=== PATIENT | female | born 1995 | race Asian ===

== ENCOUNTER 2022-02-11 17:32 | Emergency (ER) | payer OTHER ==
[~2022-02-11] VITALS: Ht 157.5 cm; Wt 73.9 kg
--- NOTE | 2022-02-11 18:13 | NUR ---
TO ER BED 16, CAME IN FOR EPIGASTRIC PAIN x 3DAYS, WORSE AFTER EATING WENT TO URGENT CARE AND SUGGESTED EMIL [id number], BREATHING EVEN AND NON LABORED, AWAITING MD [place]
[2022-02-11] MEDS ORDERED: FAMOTIDINE/PF INJ 20 MG/2 ML VIAL IV ONE ×2 (18:59→19:00)
[2022-02-11] MEDS ORDERED: MORPHINE SULFATE INJ 2 MG/ML DISP.SYRIN ONE (18:59)
[2022-02-11] MEDS ORDERED: MORPHINE SULFATE INJ 2 MG/ML DISP.SYRIN IV ONE (19:00)
[2022-02-11] MEDS ORDERED: IV NS 0.9% 1,000 ML BAG IV ONE (19:00)
--- NOTE | 2022-02-11 19:00 | NUR ---
[facility] PATCHER AT BEDSIDE FOR BLOOD DRAW
[2022-02-11 19:43] LABS: CALCIUM, SERUM 9.3 mg/dL (8.5-10.1); CREATININE 0.7 mg/dL (0.6-1.3); POTASSIUM 3.7 mmol/L (3.5-5.1)
[2022-02-11 19:53] LABS: BILIRUBIN,URINE NEGATIVE (NEGATIVE); COLOR,URINE YELLOW (YELLOW); LEUKOCYTE ESTERASE ,URINE NEGATIVE (NEGATIVE); NITRITE, URINE NEGATIVE (NEGATIVE); PH,URINE 5.5 (5.0-8.0); PROTEIN,URINE NEGATIVE (NEGATIVE); UGLUCOSE NEGATIVE (NEGATIVE); UROBILINOGEN,URINE 0.2 EU/dL (0.2)
[2022-02-11 19:57] LABS: BACTERIA,URINE RARE /HPF (None Seen); MUCUS,URINE Moderate /LPF (None Seen); RBC,URINE 0-2 /HPF (0-2); WBC,URINE 0-2 /HPF (0-3)
[2022-02-11 19:58] LABS: BILIRUBIN,DIRECT 0.1 mg/dL (0.0-0.2); BILIRUBIN,TOTAL 0.3 mg/dL (0.2-1.0)
[2022-02-11 20:01] LABS: BASOPHILS # (AUTO) 0.1 K/uL (0.0-0.2); BASOPHILS % (AUTO) 0.6 % (0.0-2.0); EOSINOPHILS % (AUTO) 1.2 % (0.0-6.0); HEMATOCRIT 38 % (33-45); HEMOGLOBIN 12.3 g/dL (11.5-14.8); LYMPHOCYTES # (AUTO) 3.2 K/uL (0.8-4.8); LYMPHOCYTES % (AUTO) 34.2 % (20.0-44.0); MEAN CORPUSCULAR HGB CONC 33 g/dl (31.0-36.0); MEAN CORPUSCULAR VOLUME 80 fL (82-100); MONOCYTES # (AUTO) 0.5 K/uL (0.1-1.30); MONOCYTES % (AUTO) 4.9 % (2.0-12.0); NEUTROPHILS # (AUTO) 5.5 K/uL (1.8-8.9); NEUTROPHILS % (AUTO) 59.1 % (43.0-81.0); PLATELET COUNT (AUTO) 304 K/uL (150-450); RED BLOOD CELL COUNT(AUTO) 4.68 MIL/uL (4.0-5.2); WHITE BLOOD COUNT (AUTO) 9.2 K/uL (4.3-11.0)
--- NOTE | 2022-02-11 21:34 | NUR ---
DR AREVALO ON THE PHONE WITH DR SAHNI, GEN SURG
[2022-02-11] MEDS ORDERED: IBUP-1955 PO (21:37)
[2022-02-11] MEDS ORDERED: TRAM50TA2 PO (21:40)
--- NOTE | 2022-02-11 21:58 | NUR ---
Patient discharged to home in stable condition. Written and verbal after care instructions given. Patient verbalizes understanding of instruction.
[2022-02-11 21:59] VITALS: BP 133/80
--- NOTE | 2022-02-11 22:00 | NUR ---
IV removed. Catheter intact and site benign. Pressure and 4x4 applied to site. No bleeding noted.Patient discharged to home in stable condition. Written and verbal after care instructions given. Patient verbalizes understanding of instruction.
== END 2022-02-11 22:00 | disposition home or self-care (01) ==
LOC: ER 17:38
DX: R10.13 Epigastric pain (principal); R10.11 Right upper quadrant pain; I88.0 Nonspecific mesenteric lymphadenitis
CPT/HCPCS: 36415; 74176; 80048; 80076; 81001; 83690; 84703; 85025; 96361; 96374; 96375; 99284; J2270; J3490; J7030

== ENCOUNTER 2022-08-28 18:16 | Emergency (ER) | payer OTHER ==
[~2022-08-28 18:16] MED LIST: IBUP-1955 PO; TRAM50TA2 PO
--- NOTE | 2022-08-28 19:58 | NUR ---
CALLED FOR TRIAGE. NO ANSWER
--- NOTE | 2022-08-28 20:00 | NUR ---
CALLED FOR TRIAGE. NO ANSWER
--- NOTE | 2022-08-28 20:11 | NUR ---
CALLED FOR TRIAGE. NO ANSWER
== END 2022-08-28 20:32 | disposition home or self-care (01) ==
LOC: ER 18:20
DX: Z53.21 Procedure and treatment not carried out due to patient leaving prior to being seen by health care provider (principal)